=== PATIENT | male | born 1975 | race Caucasian/White ===

== ENCOUNTER 2018-06-16 21:51 | Emergency (ER) | payer OTHER ==
[~2018-06-16] VITALS: Ht 170.2 cm; Wt 75.7 kg
[2018-06-17] MEDS ORDERED: MUCINEX DM ER1 EAC1 PO (00:28)
[2018-06-17] MEDS ORDERED: AIRBORNE EFFER1 EACH PO (00:28)
[2018-06-17] MEDS ORDERED: OSEL75CA PO (00:28)
[2018-06-17] MEDS ORDERED: CELEBREX200MG PO (00:28)
== END 2018-06-17 00:40 | disposition home or self-care (01) ==
LOC: ER 21:51
DX: J09.X2 Influenza due to identified novel influenza A virus with other respiratory manifestations (principal); J06.9 Acute upper respiratory infection, unspecified